=== PATIENT | male | born 1950 | race Caucasian/White ===

== ENCOUNTER → 2024-11-13 15:18 | Outpatient (REF) | payer OTHER, SELFPAY | LOC: RAD 15:18 | PROVIDERS: ATTENDING PHYSICIAN Internal Medicine | DX: Z13.820 Encounter for screening for osteoporosis (principal); Z91.89 Other specified personal risk factors, not elsewhere classified; M85.88 Other specified disorders of bone density and structure, other site | CPT/HCPCS: 77080 ==

== ENCOUNTER → 2025-08-13 15:09 | Outpatient (REF) | payer OTHER, SELFPAY | LOC: RCS 15:09 | PROVIDERS: ATTENDING PHYSICIAN Internal Medicine | DX: R07.89 Other chest pain (principal) | CPT/HCPCS: 93017 ==

== ENCOUNTER → 2025-08-27 11:47 | Outpatient (REF) | payer OTHER, SELFPAY | LOC: HWRCS 11:47 | PROVIDERS: ATTENDING PHYSICIAN Internal Medicine | DX: R07.89 Other chest pain (principal); R94.39 Abnormal result of other cardiovascular function study | CPT/HCPCS: 78452; 93017; A9500 ==

== ENCOUNTER → 2025-09-13 16:08 | Outpatient (REF) | payer OTHER, SELFPAY | LOC: HWRCS 16:08 | PROVIDERS: ATTENDING PHYSICIAN Student in an Organized Health Care Education/Training Program; FAMILY PHYSICIAN Internal Medicine | DX: R93.1 Abnormal findings on diagnostic imaging of heart and coronary circulation (principal) | CPT/HCPCS: 93306 ==